=== PATIENT | female | born 2005 | race Caucasian/White ===

== ENCOUNTER 2025-09-13 20:35 | Emergency (ER) | payer SELFPAY ==
[2025-09-13 20:39] VITALS: BP 130/94
[2025-09-13 20:55] LABS: Hematocrit 40.4 % (37.0-47.0); Hemoglobin 13.5 g/dL (12.0-16.0); Mean Corp Hgb Conc. 33.4 g/dL (33.0-37.0); Mean Corpuscular Volume 81.9 fL (81.0-99.0); Nucleated Red Blood Cells % 0 %; Platelet Count 365 10^3/uL (130-400); Red Cell Dist. Width 13.2 % (11.5-14.5)
[2025-09-13 20:59] LABS: Urine Character Clear (Clear)
[2025-09-13 21:17] LABS: HCG, Serum Qualitative Screen Negative
[2025-09-13 21:24] LABS: ALT (SGPT) 44 U/L (0-35); AST (SGOT) 42 U/L (14-36); Albumin 4.6 g/dl (3.5-5.0); Alkaline Phosphatase 124 U/L (38-126); Blood Urea Nitrogen 7 mg/dl (7-17); Calcium 9.5 mg/dl (8.4-10.2); Carbon Dioxide 26 mmol/L (22-30); Chloride 97 mmol/L (98-107); Glucose 98 mg/dl (70-99); Lipase 50 U/L (23-300); Potassium 3.8 mmol/L (3.5-5.1); Sodium 133 mmol/L (135-145); Total Protein 8.1 g/dl (6.3-8.2); eGFR > 60.00
[2025-09-13 21:30] LABS: Urine Squamous Cell >30 /LPF (Few)
== END 2025-09-13 22:10 ==
LOC: EMR 20:35
PROVIDERS: Emergency Medicine
DX: Z53.21 Procedure and treatment not carried out due to patient leaving prior to being seen by health care provider (principal)
CPT/HCPCS: 80053; 81003; 81015; 83690; 84703; 85025; 87086